=== PATIENT | male | born 1990 | race Caucasian/White ===

== ENCOUNTER 2017-02-01 22:47 | Emergency (ER) | payer OTHER ==
[~2017-02-01] VITALS: Ht 190.5 cm; Wt 113.4 kg
[2017-02-02] MEDS ORDERED: KETOROLAC 30 MG/ML VIAL (J1885) IV ONE (02:45)
[2017-02-02] MEDS ORDERED: KETOROLAC 30 MG/ML VIAL (J1885) IM ONE (02:45)
[2017-02-02] MEDS ORDERED: KETO10TAB PO (03:15)
[2017-02-02 03:20] VITALS: BP 134/69
--- NOTE | 2017-02-02 09:06 | REP ---
CHEST, TWO VIEWS: There is no evidence of acute infiltrate. No pleural effusion is seen. The heart is normal in size. The mediastinal silhouette is unremarkable. The visualized osseous structures are intact. IMPRESSION: No acute pulmonary disease. Signed by Randy Flores MD 02/02/2017 04:12 P
--- NOTE | 2017-02-02 20:36 | ECGEPIP ---
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
== END 2017-02-02 03:31 | disposition home or self-care (01) ==
LOC: M ED 23:49
DX: R07.1 Chest pain on breathing (principal)
CPT/HCPCS: 71020; 93005; 96372; 96374; 99283; J1885

== ENCOUNTER 2017-10-31 15:13 | Emergency (ER) | payer OTHER ==
[~2017-10-31] VITALS: Ht 190.5 cm; Wt 110.3 kg
[~2017-10-31 15:13] MED LIST: KETO10TAB PO
[2017-10-31 15:26] VITALS: BP 138/66
[2017-10-31] MEDS ORDERED: LIDOCAINE 1% MDV 20ML VIAL As Ordered ONE (17:18)
[2017-10-31] MEDS ORDERED: LIDOCAINE 1% MDV 20ML VIAL IM ONE (17:30)
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
== END 2017-10-31 18:25 | disposition left against medical advice (07) ==
LOC: M ED 15:13
DX: S61.012A Laceration without foreign body of left thumb without damage to nail, initial encounter (principal); W31.2XXA Contact with powered woodworking and forming machines, initial encounter; Y92.098 Other place in other non-institutional residence as the place of occurrence of the external cause; Y93.H3 Activity, building and construction; Y99.8 Other external cause status; F17.200 Nicotine dependence, unspecified, uncomplicated

== ENCOUNTER 2018-12-12 09:39 | Emergency (ER) | payer OTHER ==
[~2018-12-12] VITALS: Ht 190.5 cm; Wt 109.1 kg
[2018-12-12] MEDS ORDERED: SKEL800T97 PO (09:43)
[2018-12-12 11:14] VITALS: BP 122/69
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
[2018-12-12] MEDS ORDERED: ROBA500T PO (11:25)
== END 2018-12-12 11:27 | disposition home or self-care (01) ==
LOC: M ED 09:39
DX: M51.26 Other intervertebral disc displacement, lumbar region (principal); Z87.891 Personal history of nicotine dependence

== ENCOUNTER 2019-02-03 11:31 | Emergency (ER) | payer OTHER ==
[~2019-02-03] VITALS: Ht 190.5 cm; Wt 106.8 kg
[2019-02-03 11:31] VITALS: BP 126/77
[~2019-02-03 11:31] MED LIST changes: +ROBA500T PO; +SKEL800T97 PO
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
[2019-02-03] MEDS ORDERED: MOBI4TAB PO (12:34)
[2019-02-03] MEDS ORDERED: IBUPROFEN 800 MG TAB PO ONE (12:45)
[2019-02-03] MEDS ORDERED: BACITRACIN OINT 30GM TOP PRN (12:45)
== END 2019-02-03 13:57 | disposition home or self-care (01) ==
LOC: M ED 11:31
DX: S61.216A Laceration without foreign body of right little finger without damage to nail, initial encounter (principal); W23.0XXA Caught, crushed, jammed, or pinched between moving objects, initial encounter; Y92.810 Car as the place of occurrence of the external cause

== ENCOUNTER 2019-04-10 21:17 | Emergency (ER) | payer OTHER ==
[~2019-04-10] VITALS: Ht 190.5 cm; Wt 106.8 kg
[~2019-04-10 21:17] MED LIST changes: +MOBI4TAB PO
[2019-04-10] MEDS ORDERED: PANTOPRAZOLE 40MG TAB (PROTONIX) PO ONE (22:15)
[2019-04-10] MEDS ORDERED: ONDANSETRON 4 MG ORAL DISINTEGRATING TAB (Q0162 PER 1MG) PO ONE (22:15)
[2019-04-10] MEDS ORDERED: SUCRALFATE 1 GM TAB PO ONE (22:15)
[2019-04-10 22:17] LABS: BASO # 0.1 10^3/uL (0.0-0.2); BASO % 1.1 % (0.0-1.0); EOS # 0.3 10^3/uL (0.0-0.50); HEMATOCRIT 40.7 % (42.0-52.0); HEMOGLOBIN 13.7 g/dl (13.5-17.5); LYMPH # 2.6 10^3/uL (1.5-6.5); LYMPH % 39.5 % (24.0-44.0); MEAN CORPUSCULAR HEMOGLOBIN 30.2 pg (27.0-33.0); MEAN CORPUSCULAR HGB CONC 33.7 g/dl (32.0-36.5); MEAN CORPUSCULAR VOLUME 89.8 fl (80.0-96.0); MONO # 0.6 10^3/uL (0.0-0.8); MONO % 8.4 % (0.0-5.0); NEUTROPHILS % 45.8 % (36.0-66.0); PLATELET COUNT, AUTOMATED 177 10^3/uL (150-450); RED BLOOD COUNT 4.53 10^6/uL (4.30-6.10); WHITE BLOOD COUNT 6.6 10^3/uL (4.0-10.0)
[2019-04-10 22:36] LABS: BLOOD UREA NITROGEN 27 MG/DL (7-18); CALCIUM LEVEL 8.2 MG/DL (8.5-10.1); CARBON DIOXIDE LEVEL 27 MEQ/L (21-32); CHLORIDE LEVEL 108 MEQ/L (98-107); CREATININE FOR GFR 1.15 MG/DL (0.70-1.30); GLOMERULAR FILTRATION RATE > 60.0 (>60); GLUCOSE, FASTING 110 MG/DL (70-100); POTASSIUM SERUM 3.9 MEQ/L (3.5-5.1); SODIUM LEVEL 142 MEQ/L (136-145)
[2019-04-10] MEDS ORDERED: PROT1TAB2 PO (23:26)
[2019-04-10] MEDS ORDERED: CARA1TAB6 PO (23:26)
[2019-04-10 23:27] VITALS: BP 130/69
--- NOTE | 2019-04-11 01:17 | REP ---
Clinical: Epigastric and hemoptysis. Technique: Upright view of the chest with supine and upright views of the abdomen and pelvis. Findings: Frontal upright view of the chest demonstrates no acute cardiopulmonary process or free air below the diaphragm to suspect pneumoperitoneum. Supine and upright views of the abdomen and pelvis demonstrate nonspecific bowel gas pattern without obstruction or perforation. No organomegaly. 4 mm calcification in the right katty pelvis likely phleboliths although ureteral calculus and appendicolith cannot be excluded. Skeletal structures normal for age. Impression: Nonspecific bowel gas pattern. No free air to suggest perforation. Electronically Signed by Tai Pearson MD 04/11/2019 01:09 A
== END 2019-04-10 23:33 | disposition home or self-care (01) ==
LOC: M ED 21:17
DX: R04.2 Hemoptysis (principal); K29.70 Gastritis, unspecified, without bleeding
CPT/HCPCS: 74021; 80048; 85025; 99284; Q0162

== ENCOUNTER → 2019-12-08 | Outpatient (CLI) | payer OTHER ==
[~2019-12-08] MED LIST changes: +ACET-683 PO; +CARA1TAB6 PO; +GABA-843 PO; +PROT1TAB2 PO
--- NOTE | 2019-12-08 14:02 | ECGEPIP ---
[facility] Test Date: 2019-12-08 Pat Name: KLAUDIA ZARATE Department: Room: - Gender: Male Therapy Director: RYLEE : 1990 Requested By: MILTON Gibson Order Number: [id number] Reading MD: Adams Alcazar Measurements Intervals [place] Rate: 54 P: -38 TN: 189 QRS: 49 QRSD: 114 T: 40 QT: 405 QTc: 387 Interpretive Statements SINUS BRADYCARDIA MODERATE INTRAVENTRICULAR CONDUCTION DELAY Early repolarization. No significant change compared with 02/01/2017 Electronically Signed on 12-08-2019 14:02:14 EST by Adams Alcazar
== END ==
LOC: M EKG 10:08
PROVIDERS: ATTEND Anesthesiology
DX: Z01.818 Encounter for other preprocedural examination (principal)

== ENCOUNTER 2019-12-12 07:46 | Inpatient (IN) | payer OTHER ==
--- NOTE | 2019-12-06 14:07 | HPE ---
DATE OF ADMISSION: 12/12/2019 ATTENDING: Dr. Smith CHIEF COMPLAINT: Back pain. HISTORY: This is a pleasant, 29-year-old male patient with progressively worsening back pain with pain radiating down to his right lower extremity. He has failed to improve with conservative management to include physical therapy, injections, activity modification and oral NSAIDS. He has elected for surgery for his continued symptoms. He is consented by Dr. Smith for a right unilateral laminectomy at L5-S1 and transforaminal lumbar interbody fusion (TLIF) L5-S1 with the use of percutaneous pedicle screws. X-ray is notable for degenerative changes at L5-S1 with a retrolisthesis 5 on 1. MRI of his lumbar spine notes disc space narrowing at L5-S1 with other degenerative changes at L2-3, L3-4 and L4-5 with a right sided disk at L5-S1 with neuroforaminal narrowing to the right at S1. ALLERGIES: No known drug allergies. CURRENT MEDICATIONS: - gabapentin 300 mg one tablet up to three times a day - methocarbamol 500 mg as needed for spasms - meloxicam 15 mg one tablet once per day (discontinue that five days prior to surgery) MEDICAL HISTORY: Includes lumbar degenerative disk disease, lumbar spondylolisthesis. SURGICAL HISTORY: None. FAMILY HISTORY: Arthritis and diabetes, otherwise unremarkable. SOCIAL HISTORY: He is a former smoker. Does not currently smoke. He uses alcohol on an occasional basis. 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 REVIEW OF SYSTEMS: Denies fever or chills. Denies chest pain, shortness of breath or cough. Denies difficulty breathing. Denies abdominal pain. Denies nausea or vomiting. Notes persistent back pain and pain down his right leg. Denies recent urinary tract infection (UTI) symptoms. He is recovering from a upper respiratory infection (URI) with a nonproductive cough. No fevers or chills. No shortness of breath or difficult breathing currently. PHYSICAL EXAMINATION: Today reveals an alert, well nourished, well developed, male patient who ambulates with a normal gait. His gait is not wide based. His mood and affect are appropriate. He sits comfortably on the exam room table. Exam of the back reveals the skin to be intact. No erythema, edema or ecchymosis. There is diffuse tenderness at the base of the lumbar spine. Deep tendon reflexes are absent at the right ankle, 1 at the left ankle, 1 at both knees. Straight leg raise testing is positive on the left side in the seated position. His mood and affect are appropriate for the situation. There is symmetrical rise and fall of the chest. No labored breathing. Bilateral breath sounds are clear to auscultation. Heart: Regular rate and rhythm. Neck: Supple. Without adenopathy of jugular venous distention (JVD). Abdomen: Bowel sounds are present. Current temperature 97.5, height 74 inches, weight 256 pounds, body mass index (BMI) 32, blood pressure 129/79, pulse 89, respirations 16. IMPRESSION: Symptomatic lumbar degenerative disk disease and lumbar spondylolisthesis. PLAN: He has consented for a right unilateral laminectomy at L5-S1 as well as TLIF at L5-S1 and use of percutaneous pedicle screws. VIN
[~2019-12-12] VITALS: Ht 190.5 cm; Wt 117.8 kg
[~2019-12-12 07:46] MED LIST changes: +GABAPENTIN 300 MG CAP PO ONE; +LR 1,000 ML IV ONE; +PERCOCET 5MG/325MG TAB PO ONE; +ceFAZolin SOD 2 GM in IV 1 EA IV ONE
[2019-12-12] MEDS ORDERED: BUPIVACAINE/EPIN 0.25% 30 ML VIAL As Ordered ONE (08:52)
[2019-12-12] MEDS ORDERED: THROMBIN SOLN 20,000 UNITS KIT As Ordered ONE (08:52)
[2019-12-12] MEDS ORDERED: EPINEPHrine INJ 1 MG/ML 1ML VIAL As Ordered ONE (08:53)
[2019-12-12] MEDS ORDERED: TRANEXAMIC ACID 100 MG/ML 10ML VIAL As Ordered ONE (08:53)
[2019-12-12] MEDS ORDERED: BUPIVACAINE HCL 0.5% 10 ML VIAL As Ordered ONE (08:53)
[2019-12-12] MEDS ORDERED: VANCOMYCIN HCL 500 MG/10 ML VIAL (J3370) As Ordered ONE (08:53)
[2019-12-12] MEDS ORDERED: BUPIVACAINE LIPOSOME/PF 1.3% 20ML VIAL (13.3MG/ML)(EXPAREL)(C9290 PER1MG) As Ordered ONE (08:53)
[2019-12-12] MEDS ORDERED: BACITRACIN PWD 50,000 UNITS VIAL As Ordered ONE (08:53)
[2019-12-12] MEDS ORDERED: LIDOCAINE 2% INJ 100 MG/5 ML SDV (FOR ANES.) As Ordered ONE (10:03)
[2019-12-12] MEDS ORDERED: ONDANSETRON 4MG/2ML VIAL (J2405) As Ordered ONE (10:03)
[2019-12-12] MEDS ORDERED: ROCURONIUM BROMIDE 50 MG/5 ML VIAL As Ordered ONE (10:03)
[2019-12-12] MEDS ORDERED: propofoL 200 MG/20 ML VIAL As Ordered ONE ×2 (10:03→17:22)
[2019-12-12] MEDS ORDERED: dexameTHASONE 4 MG/ML 1ML VIAL (J1100) As Ordered ONE (10:03)
[2019-12-12] MEDS ORDERED: MIDAZOLAM INJ 2 MG/2 ML VIAL (J2250) As Ordered ONE (10:04)
[2019-12-12] MEDS ORDERED: fentaNYL 250 MCG/5 ML INJECTION (J3010) As Ordered ONE (10:04)
[2019-12-12] MEDS ORDERED: HYDROmorphone HCL 2 MG/ML 1ML VIAL (J1170) As Ordered ONE (13:38)
[2019-12-12] MEDS ORDERED: ceFAZolin 2 GM/D5W 50 ML IV BAG (J0690 PER 500MG) As Ordered ONE (15:21)
[2019-12-12] MEDS ORDERED: fentaNYL 100 MCG/2 ML INJECTION (J3010) As Ordered ONE ×3 (15:34→18:08)
[2019-12-12] MEDS ORDERED: DESFLURANE 240 ML INHALANT As Ordered ONE (15:50)
[2019-12-12] MEDS ORDERED: ACETAMINOPHEN 1000MG 100ML IV BTL (OFIRMEV) (J0131 PER 10MG) As Ordered ONE (15:55)
[2019-12-12] MEDS ORDERED: METOCLOPRAMIDE INJ 10MG/2ML VIAL (J2765) As Ordered ONE (16:24)
[2019-12-12] MEDS ORDERED: SUGAMMADEX SODIUM 500 MG/5 ML VIAL (BRIDION) As Ordered ONE (17:01)
[2019-12-12] MEDS: fentaNYL 100 MCG/2 ML INJECTION (J3010) IV PRN ×4 (18:09→18:25)
[2019-12-12] MEDS ORDERED: HYDROMORPHONE HCL 0.5 MG/ 0.5 ML SYRINGE (J1170 PER 1) IV PRN ×2 (18:15→19:00)
[2019-12-12] MEDS ORDERED: LR 1,000 ML IV SCH (18:15)
[2019-12-12] MEDS ORDERED: oxyCODONE 5MG TAB PO PRN (18:15)
[2019-12-12] MEDS: ONDANSETRON 4MG/2ML VIAL (J2405) IV PRN (18:25)
[2019-12-12 18:45] VITALS: BP 136/86
[2019-12-12 19:15] VITALS: BP 138/82
[2019-12-12] MEDS: LR 1,000 ML IV SCH (19:15)
[2019-12-12] MEDS ORDERED: PERCOCET 5MG/325MG TAB PO PRN (19:15)
[2019-12-12] MEDS ORDERED: PROMETHAZINE INJ 25 MG/ML VIAL (J2550) IV PRN (19:15)
[2019-12-12] MEDS: ceFAZolin SOD 2 GM in IV 1 EA IV SCH (19:50)
[2019-12-12] MEDS: GABAPENTIN 300 MG CAP PO SCH (20:00)
[2019-12-12] MEDS: METAMUCIL (PSYLLIUM) PACKET PO SCH (20:00)
[2019-12-12 20:15] VITALS: BP 138/79
[2019-12-12] MEDS ORDERED: ONDANSETRON 4MG/2ML VIAL (J2405) IV PRN (20:15)
[2019-12-12] MEDS ORDERED: POLYVINYL ALCOHOL OPHTH SOLN 15 ML(LIQUITEARS) OD PRN (20:15)
[2019-12-12 21:15] VITALS: BP 138/79
[2019-12-12 22:15] VITALS: BP_SYST 135; BP_SYST 138; BP_DIAS 70; BP_DIAS 75
[2019-12-12] MEDS: HYDROMORPHONE HCL 0.5 MG/ 0.5 ML SYRINGE (J1170 PER 1) IV PRN (22:45)
[2019-12-12 23:15] VITALS: BP 138/75
[2019-12-12] MEDS: CYCLOBENZAPRINE 10 MG TAB PO PRN (23:18)
[2019-12-13] MEDS: PERCOCET 5MG/325MG TAB PO PRN ×5 (01:30→23:43)
[2019-12-13] MEDS: HYDROMORPHONE HCL 0.5 MG/ 0.5 ML SYRINGE (J1170 PER 1) IV PRN ×2 (01:58→05:00)
[2019-12-13 02:00] VITALS: BP 142/85
[2019-12-13] MEDS: ceFAZolin SOD 2 GM in IV 1 EA IV SCH (03:39)
[2019-12-13] MEDS: LR 1,000 ML IV SCH (05:15)
[2019-12-13 06:00] VITALS: BP 131/76
--- NOTE | 2019-12-13 07:43 | REP ---
INDICATION: Right laminectomy PROCEDURE: Single view plain film study, lateral view COMPARISON STUDIES: No similar studies FINDINGS: Metallic pointer at the L5 S1 level. Vertebral heights and disc heights preserved. No malalignments. No fracture. CONCLUSION: Metallic pointer at the L5 S1 level. Otherwise normal examination. Electronically Signed by Rick Ndiaye MD 12/12/2019 01:34 P
[2019-12-13] MEDS ORDERED: MS C15TA8 PO (08:44)
[2019-12-13] MEDS ORDERED: PERC5TAB12 PO (08:44)
[2019-12-13] MEDS: METAMUCIL (PSYLLIUM) PACKET PO SCH ×2 (09:00→20:28)
[2019-12-13] MEDS: GABAPENTIN 300 MG CAP PO SCH ×2 (09:06→20:29)
[2019-12-13] MEDS: MORPHINE 15 MG SA TAB PO SCH ×2 (09:06→20:29)
[2019-12-13] MEDS: CYCLOBENZAPRINE 10 MG TAB PO PRN ×2 (09:07→20:00)
[2019-12-13 10:00] VITALS: BP 125/77
[2019-12-13 14:00] VITALS: BP 129/75
[2019-12-13] MEDS ORDERED: MORPHINE 4 MG/ML 1ML VIAL/SYRINGE (J2270) IV ONE (17:00)
[2019-12-13] MEDS ORDERED: ACETAMINOPHEN TAB 650MG DOSE (2X325MG) PO PRN (21:00)
[2019-12-13 22:00] VITALS: BP 118/64
[2019-12-14] MEDS: CYCLOBENZAPRINE 10 MG TAB PO PRN (04:27)
[2019-12-14] MEDS: PERCOCET 5MG/325MG TAB PO PRN ×2 (05:38→12:28)
[2019-12-14 06:00] VITALS: BP 144/81
[2019-12-14] MEDS: METAMUCIL (PSYLLIUM) PACKET PO SCH (09:11)
[2019-12-14] MEDS: MORPHINE 15 MG SA TAB PO SCH (09:11)
[2019-12-14] MEDS: GABAPENTIN 300 MG CAP PO SCH (09:12)
--- NOTE | 2019-12-14 09:39 | RO ---
DATE OF PROCEDURE: 12/12/2019 PREOPERATIVE DIAGNOSIS: Right lower extremity radiculopathy, elements of transitional sacral anatomy, low back pain chronic. POSTOPERATIVE DIAGNOSIS: Right lower extremity radiculopathy, elements of transitional sacral anatomy, low back pain chronic. PROCEDURE PERFORMED: Right unilateral laminectomy at the L5 level for decompression of the thecal sac and exiting nerve root, right unilateral laminectomy S1 level for decompression of the thecal sac and traversing nerve root, a right L5-S1 transforaminal interbody fusion including endplate preparation and placement of bone graft, use of a posterior interbody device biomechanical type, harvest of right iliac crest morselized bone graft, percutaneous bilateral pedicle screw instrumentation. SURGEON: Milton Smith MD [employer] DIRECTOR: GARRET Rueda ANESTHESIA: General endotracheal. Estimated blood loss was 500 mL, replaced with crystalloid. No complications. INDICATIONS FOR SURGERY: Discomfort radiating down the right lower extremity as well as the patient reported back discomfort getting worse over a period of 5 years. MRI evidence of a broad-based disc herniation at L5-S1 and a lumbarized first sacral segment. The patient has elected for operative intervention. Consent reviewed in detail including a tennille discussion of pathology involved, the procedure proposed, alternatives including doing nothing and risks including but not limited to pain, failure, nerve injury, incomplete relief of symptoms, need for additional surgery and other pathology. We talked about the patient is aware of recovery after spinal fusion surgery, the need to wear a brace to provide for additional stability. Component used include 2 Viper system, 45 screws at the sacral level and 55 screws at the L5 level, the appropriate connecting mckayla, the appropriate end caps. Interbody device was 4 across size 12 mm wide, 10 mm height. We utilized a 2 mL dose of demineralized bone matrix putty as well. OPERATIVE COURSE: Identified in the holding area, site side verified. I did appreciate that patient had gained about 12 pounds from the time that I booked the surgery. Next, he was brought to the operating room. General endotracheal anesthesia was administered. He was then positioned on the Julio Cesar frame for exposure of the lumbar spine. I further adjusted the Julio Cesar frame. The knees were slightly flexed. Once I and the brace maker were comfortable with the patient's positioning he was then sterilely prepped and draped in usual fashion for exposure lumbar spine. Next, I utilized 3.5 loupe magnification and a headlamp for the initial portion of the procedure. I initially stood on the patient's right side but at times I did alternate to the left side for wheeler portions of procedure. Mr. Madrid participated in the capacity of it administrative assistant also alternating sides at wheeler points. Next, the incision outlined with marking pen infiltrated with 0.25% Marcaine with epinephrine based on the palpation of landmarks made with a #10 blade knife developed down through skin and subcuticular tissues to the posterior lumbar fascia. Posterior lumbar fascia was reflected off of the spinous process of 5 sharply on the right side, developed along the L5 lamina. A divot was drilled in the L5 lamina to chiquis our level. A cross-table lateral x-ray was taken to verify the L5-S1 level. The dissection continued superiorly and inferiorly further exposing L5-S1 out over the facette complex. Next, Leksell's were utilized to remove some of the posterior lamina of L5 and this was retained for bone graft. Next, at this point, my loupe and headlamp were removed and the operating microscope was brought in for additional portion of the procedure and safe use with a high-speed bur. Using the operating microscope, we implemented a right unilateral laminectomy of the L5 level extending superiorly through the bare area of 5. We removed the majority of the L5-S1 facet on that right side and inferiorly through S1 to the bare area of S1. I elevated ligamentum flavum using curettes, pituitaries and Kerrison's and exposed the thecal sac. Next, we further exposed the exiting and traversing nerve root. Next, Mr. Madrid assisted by sweeping the traversing nerve root medially. We appreciated a broad-based bulge, which did seem to have a focal component at the shoulder. Annulus was opened using a #11 blade and I removed disc material using pituitaries. There was a significant extruded component as well as significant friable disc material within the interspace. This was removed as Mr. Madrid assisted with retraction. Next, once this was accomplished I utilized the conical reaming devices to ream the interspace L5-S1 and remove additional disc material as well as cartilaginous endplate. I also utilized endplate ring corrine to remove additional cartilaginous endplate. Once the interspace was significantly improved and secured we irrigated. He had significant epidural bleeding and that was controlled using bipolar cautery as well as thrombin Gelfoam. Next, I appreciated that the traversing nerve root was significantly decompressed in the course of our laminectomies as well as foramen. Next, Mr. Madrid utilized Benedict retractor to retract the traversing S1 nerve root medially. I further created the box shaped annulotomy to allow for graft placement. Next, I trialed with a size 10 x 10 sound. Next, this was removed. Next, irrigation was accomplished. Next, the right iliac crest was exposed. Mr. Madrid assisted with the exposure. I opened the separate fascial incision over the iliac crest on the patient's right side, removed posterior superior iliac spine using Leksell's and removed morselized bone graft using curettes. Next, this was irrigated, anesthetized using Exparel solution and closed with interrupted stitch. Next, this morselized bone graft was packed into the titanium cage interstices along with demineralized bone matrix putty. I also took additional iliac crest bone graft and packed that into the interspace along with some of the laminar fragments. This was moved around the interspace to make room for the cage using the conical reaming device. We also applied some demineralized bone matrix putty remaining into the interspace. Next, the operating microscope had been removed. The C-arm was sterilely draped and brought in for this portion of the procedure. Next, I again implanted the 10 x 10 sounding device and obtained a cross-table lateral as well as an AP fluoroscopic image. This device seemed to fit appropriately. Next, we obtained the interbody cage device. Mr. Madrid retracted using the Benedict retractor and then, I implanted the cage device. This was tamped into place and directly visualized. Next, the cage device was disengaged from the van driver. Irrigation was accomplished. No cerebrospinal fluid (CSF) leak was appreciated. The cage appeared to be reassessed into the interspace both on the fluoroscopic images as well as clinically. Next, once this was accomplished we began to place percutaneous screws. I placed the S1 screw in the following fashion. I drilled at the S1 pedicle with Mr. Madrid allowing for retraction using the high-speed bur, then I placed the pedicle finder into the pedicle at S1 for open placement of that screw. I then made a separate fascial incision to allow for use of the Viper system and I placed the Viper guidewire into the vertebral body at S1. We had measured the ball-tipped guidewire for a size 45 screw at that level. Next, the Viper guidewire was appreciated to be in good alignment. I then over the guidewire slid the Viper screw through separate fascial incision down to the right side S1 pedicle and then advanced the Viper screw over the guidewire. When the Viper screw was at the appropriate depth I withdrew the guidewire altogether and freehand placed the Viper screw at S1 with fluoroscopic visualization in AP and lateral plane verifying good alignment. Next, at the L5 level because of remaining shielding of the lamina I was able to use the percutaneous instrumentation fully and I placed the percutaneous Viper 55 mm screw as predicted by length of the cage against the lateral aspect of the L5 pedicle using fluoroscopy in AP plane, advanced the guidewire and then advanced the pedicle screw into the vertebral body. We also utilized AP and lateral fluoroscopic visualization to assure appropriate placement. Next, I then placed the connecting mckayla across the L5-S1 level. I placed the end caps across the L5-S1 level. I locked the end caps at the L5 level and I compressed using the compression device across L5-S1 and then locked the S1 pedicle end cap using the torque counter-torque device on both. Next, on the contralateral left side we again placed percutaneous pedicle screws. These were placed through separate skin incisions. The skin incisions were longitudinal and parallel to his right paracentral decompression incision. Next, on the right side under AP fluoroscopic visualization we placed the dilator to the pedicle of S1. Then, I placed the percutaneous pedicle screw in the usual fashion under fluoroscopic visualization again at 55 at S1 verified in AP and lateral plane placement. Next, the L5 pedicle screw was placed in usual fashion beginning at the lateral aspect of the pedicle and advancing under fluoroscopic visualization. Next, connecting mckayla also placed again locked the L5 level compressed across the L5-S1 using a compression device and then locked the S1 level, both level locked using the torque counter-torque device. Next the Viper blades were then broken free using the appropriate device. Next, once this was accomplished irrigation was accomplished. The wound was inspected for bleeding. No bleeding. No CSF leak. Next, I irrigated with concentrated bacitracin. We also placed some vancomycin crystals deep within the wound. Next, because this patient had significant epidural bleeding and muscular swelling I did place a 7 flat drain exiting superiorly to the right of midline draining the interspace. Next, the wounds were reapproximated with interrupted stitch including fascial stitch at the deep level taking care to avoid the drain, deep dermal stitches as well as Prineo dressing over the wounds. Next, a separate dressing was placed over the drain. Next, the patient was then able to log-rolled to the hospital bed, extubated, appreciated to be moving all four extremities and moved to the recovery room in good condition. Next, this patient's operative case went well but it did take additional time because of the patient's body habitus. He is a muscular large gentleman and he weighs about 250 pounds. Next, Mr. Timmonspedro participated in the entirety of the case in the capacity of it administrative assistant. For further details please refer to medical record.
== END 2019-12-14 13:30 | disposition home or self-care (01) | DRG 460 ==
LOC: M OR 07:46 → EDSTATUS 15:50 → M MS5PR 18:40
PROVIDERS: ADMIT Orthopaedic Surgery; ATTEND Orthopaedic Surgery
PROC: 0SG3071 Fusion of Lumbosacral Joint with Autologous Tissue Substitute, Posterior Approach, Posterior Column, Open Approach (ICD-10-PCS; principal; 2019-12-12)
PROC: 0SB20ZZ Excision of Lumbar Vertebral Disc, Open Approach (ICD-10-PCS; 2019-12-12)
PROC: 01NB0ZZ Release Lumbar Nerve, Open Approach (ICD-10-PCS; 2019-12-12)
DX: M51.16 Intervertebral disc disorders with radiculopathy, lumbar region (principal); M43.16 Spondylolisthesis, lumbar region

== ENCOUNTER → 2020-01-13 | Outpatient (REF) | payer OTHER ==
[~2020-01-13] MED LIST changes: -GABAPENTIN 300 MG CAP PO ONE; -LR 1,000 ML IV ONE; +MS C15TA8 PO; +PERC5TAB12 PO; -PERCOCET 5MG/325MG TAB PO ONE; -ceFAZolin SOD 2 GM in IV 1 EA IV ONE
== END ==
LOC: M LAB REF 15:58
PROVIDERS: ATTEND Physician Assistant
DX: R30.0 Dysuria (principal)